=== PATIENT | female | born 1990 | race Asian ===

== ENCOUNTER 2016-07-08 01:43 | Inpatient (IN) | payer OTHER ==
[2016-07-08] MEDS ORDERED: RINGERS SOLUTION,LACTATED 1,000 ML IV ONE (02:20)
[2016-07-08] MEDS ORDERED: RINGERS SOLUTION,LACTATED 1,000 ML IV PRN (02:20)
[2016-07-08 02:46] LABS: ABSOLUTE BASOPHILS # (AUTO) 0.1 10^3/uL (0.0-0.2); ABSOLUTE LYMPHOCYTES (AUTO) 1.9 10^3/uL (0.5-4.7); ABSOLUTE MONOCYTES (AUTO) 0.7 10^3/uL (0.1-1.4); ABSOLUTE NEUT (AUTO) 7.3 10^3/uL (1.7-8.2); BASOPHILS % (AUTO) 0.6 % (0-2); EOSINOPHILS % (AUTO) 0.3 % (0-6); HEMATOCRIT 33.3 % (36.0-47.0); HEMOGLOBIN 10.7 g/dL (12.0-15.5); HGB HCT DIFFERENCE -1.2; LYMPHOCYTES % (AUTO) 19.3 % (13-45); MEAN CORPUSCULAR HEMOGLOBIN 24.9 pg (27.0-33.4); MEAN CORPUSCULAR VOLUME 78 fl (80-97); MONOCYTES % (AUTO) 7.1 % (3-13); RED BLOOD COUNT 4.29 10^6/uL (3.72-5.28); RED CELL DISTRIBUTION WIDTH 13.4 % (11.5-14.0); SEGMENTED NEUTROPHILS % (AUTO) 72.7 % (42-78); WHITE BLOOD COUNT 10.1 10^3/uL (4.0-10.5)
[2016-07-08] MEDS ORDERED: MISOPROSTOL 0.2 MG TABLET ONE ×2 (02:54→02:56)
[2016-07-08] MEDS ORDERED: LIDOCAINE 1% INJ-PF (10 MG/ML) 30 ML SDV ONE ×2 (02:54→02:56)
[2016-07-08] MEDS ORDERED: OXYTOCIN/NORMAL SALINE 0 UNIT/0 ML RTUINJ ONE (02:54)
[2016-07-08] MEDS ORDERED: OXYTOCIN/NORMAL SALINE 20 UNIT/1,000 ML RTUINJ ONE ×2 (02:56→03:54)
[2016-07-08] MEDS ORDERED: FENTANYL CITRATE INJ/PF 100 MCG/2 ML AMPUL ONE (02:58)
[2016-07-08] MEDS ORDERED: IBUPROFEN 800 MG TABLET ONE (03:28)
[2016-07-08] MEDS ORDERED: BENZOCAINE/MENTHOL AEROSOL SPRAY 56 ML TOP PRN (03:29)
[2016-07-08] MEDS ORDERED: DIBUCAINE 1% OINTMENT 28 GM TP PRN (03:29)
[2016-07-08] MEDS ORDERED: ZOLPIDEM TARTRATE 5 MG TABLET PO PRN (03:29)
[2016-07-08] MEDS ORDERED: MEASLES,MUMPS&RUBELLA VACC/PF 0.5 ML VIAL SUBCUT PRN (03:29)
[2016-07-08] MEDS ORDERED: OXYTOCIN/NORMAL SALINE 1,000 ML IV PRN (03:29)
[2016-07-08] MEDS ORDERED: ACETAMINOPHEN WITH CODEINE #3 TABLET PO PRN ×2 (03:29)
[2016-07-08] MEDS ORDERED: DIPH/PERTUSS(ACELL)/TETANUS VAC/PF 0.5 ML SYR (>=10YO) IM PRN (03:29)
--- NOTE | 2016-07-08 05:22 | Admission Physical ---
Datetime Report Generated by CPN: 07/08/2016 05:22 CURRENT ADMISSION Hx Assessment: The History has been Reviewed and is Current Chief Complaint: Uterine Contractions Admit Plan: Admit to Unit; Initiate Labor Protocol ALLERGIES Medication Allergies: No Medication Allergies: none Latex: No Latex Allergies Food Allergies: none Environmental Allergies: none OBSTETRICAL HISTORY EDC: 07/08/2016 00:00 : 4 Para: 3 Term: 3 : 0 SAB: 0 IAB: 0 Ectopic: 0 Livin Cesareans: 0 VBACs: 0 Multiple Births: 0 Gestational Diabetes: No Rh Sensitization: No Incompetent Cervix: No LIDIA: No Infertility: No ART Treatment: No Uterine Anomaly: No IUGR: No Hx Previous C/S: No Macrosomia: No Hx Loss/Stillborn: No PIH: No Hx : No Placenta Previa/Abruption: No Depression/PP Depression: No PTL/PROM: No Post Hemorrhage: No Current Procedures: Ultrasound; NST Obstetrical History Comments: G1-12/03/2010 @ 40wks female 6lbs 5oz G2-12/24/2012 @ 39wks female 7lbs 0oz G3-12/02/2014 @ 41wks male 7lbs 8oz G4-Current SEE RECORDS Alcohol: No Marijuana : No Cocaine: No Other Illicit Drugs: No Cigarettes: Never Smoker. [id number] MEDICAL HISTORY Diabetes: No Blood Transfusion: No Pulmonary Disease (Asthma, TB): No Breast Disease: No Hypertension: No Yard Labor Supervisor Surgery: No Heart Disease: No Hosp/Surgery: Yes Autoimmune Disorder: No Anesthetic Complications: No Kidney Disease: No Abnormal Pap Smear: No Neuro/Epilepsy: No Psychiatric Disorders: No Other Medical Diseases: No Hepatitis/Liver Disease: No Significant Family History: No Varicosities/Phlebitis: No Trauma/Violence : No Thyroid Dysfunction: No Medical History Comments: childbirth INFECTIOUS HISTORY Gonorrhea: No Genital Herpes: No Chlamydia: No Tuberculosis: No Syphilis: No Hepatitis: No HIV/AIDS Exposure: No Rash or Viral Illness: No HPV: No PHYSICAL EXAM General: Normal HEENT: Normal Neurologic: Normal Thyroid: Normal Heart: Normal Lungs: Normal Breast: Normal Back: Normal Abdomen: Normal Genitourinary Exam: Normal Extremities: Normal DTRs: Normal Pelvic Type: Adequate Physical Exam Comments: arom when pt complete yielded light mec FETUS A EGA: 40.0 Monitoring: External US FHR Category: Category I Admit Comment: Pt progressed rapidly to delivery. See delivery note. PLANS FOR LABOR AND DELIVERY Labor and Delivery: None Pain Management: Epidural Feeding Preference: Breast Benefit of Breast Feed Discussed: Yes Circumcision: N/A INFORMED CONSENT Signature: with User ID: [email or web address]
--- NOTE | 2016-07-08 05:39 | Delivery Summary ---
Del Sum A-C Datetime Report Generated by CPN: 07/08/2016 05:39 ADMISSION DATA Chief Complaint: Uterine Contractions Admission Impression: Term, Intrauterine Admit Provider Comments: Pt progressed rapidly to delivery. See delivery note. DELIVERY PERSONNEL Delivery Doctor:: Rama Tran MD Labor and Delivery Nurse:: Etelvina Hopson RNpublic events facilities rental manager Nurse:: Tita Levy RN Insurance Advisor/MANDREL MAKER: Lachelle Cadet ST MATERNAL INFORMATION Delivery Anesthesia: None Medications After Delivery: Pitocin Drip 20 Units/1000ml NSS Estimated Blood Loss (ml): 100 Maternal Complications: Precipitous Labor (<3hrs) Provider Comments: Pt progressed to over intact perineum of female with apgars 9 and 9. Head delivered oa. Nuchal cord reduced and shoulders and body delivered easily. Cord clamped and cut. Placenta spont and intact. Mom and baby doing well. LABOR SUMMARY EDC: 07/08/2016 00:00 No. Babies in Womb: 1 Attempted: No Labor Anesthesia: None LABOR INFORMATION Reason for Induction: Not Applicable Onset of Labor: 07/08/2016 02:10 Complete Dilatation: 07/08/2016 02:57 Oxytocin: N/A Group B Beta Strep: Negative Antibiotics # of Doses: 0 Steroids Given: None Reason Steroids Not Administered: Not Applicable MEMBRANES Membranes Rupture Method: Artificial Rupture of Membranes: 07/08/2016 03:11 Length of Rupture (hr): 0.03 Amniotic Fluid Color: Light Meconium Amniotic Fluid Amount: Moderate Amniotic Fluid Odor: Normal STAGES OF LABOR Stage 1 hr: 0 Stage 1 min: 47 Stage 2 hr: 0 Stage 2 min: 16 Stage 3 hr: 0 Stage 3 min: 6 Total Time in Labor hr: 1 Total Time in Labor min: 9 VAGINAL DELIVERY Episiotomy: None Laceration Extension: N/A Laceration Type: None Laceration Repair: Not Applicable Sponge Count Correct: N/A Sharps Count Correct: N/A CSECTION DELIVERY Primary Indication: N/A Secondary Indication: N/A CSection Incidence: N/A Labor: N/A Elective: N/A CSection Incision: N/A BABY A INFORMATION Delivery Date/Time: 07/08/2016 03:13 Method of Delivery: Vaginal Born in Route : No : N/A Forceps: N/A Vacuum Extraction: N/A Shoulder Dystocia : No PRESENTATION/POSITION BABY A Presentation: Cephalic Cephalic Presentation: Vertex Vertex Position: Right Occipital Anterior Breech Presentation: N/A PLACENTA INFORMATION BABY A Placenta Delivery Time : 07/08/2016 03:19 Placenta Method of Delivery: Spontaneous Placenta Status: Delivered SCORES BABY A Heart Rate 1 min: >100 bpm Resp Effort 1 min: Good Cry Reflex Irritability 1 min: Cough or Sneeze or Pulls Away Muscle Tone 1 min: Active Motion Color 1 min: Body [place], Extremities Blue Resuscitation Effort 1 min: Tactile Stimulation SCORE 1 MIN: 9 Heart Rate 5 min: >100 bpm Resp Effort 5 min: Good Cry Reflex Irritability 5 min: Cough or Sneeze or Pulls Away Muscle Tone 5 min: Active Motion Color 5 min: Body [place], Extremities Blue Resuscitation Effort 5 min: Tactile Stimulation SCORE 5 MIN: 9 INFORMATION BABY A Gestational Age at Delivery: 40.0 Gestational Status: Full Term- 39- 40.6 Weeks Infant Outcome : Liveborn Infant Condition : Stable Sex: Female IDENTIFICATION BABY A Infant Verification Date/Time: 07/08/2016 03:18 ID Band Number: [id number] Mother's Name Verified: Yes Infant RN Verifying : S. Lavelletibvirgiejuaquinir, RN Additional Verifying Personnel: OOmar Adriánelina, RN WEIGHT/LENGTH BABY A Birthweight (gm): 3395 Weight (lb): 7 Weight (oz): 8 Infant Length (in): 20.00 Length (cm): 50.80 CORD INFORMATION BABY A No. Cord Vessels: 3 Nuchal Cord : N/A Cord Blood Taken: Yes-For Storage (Mom's Blood type +) Infant Suction: Mouth; Nose ASSESSMENT BABY A Infant Complications: Meconium Physical Findings at Delivery: Within Normal Limits Respirations: Appears Normal Skin to Skin: Yes Skin to Skin Time (min): 90 Cat Operator/ALS Called : No Care By: Racheal Pereyra RN Transferred To: Remains with Mother BABY B INFORMATION : N/A SIGNATURES Signature: with User ID: [email or web address]
--- NOTE | 2016-07-08 07:01 | L&D Flow Sheet ---
LD Flowsheet Datetime Report Generated by CPN: 07/08/2016 07:00 Datetime: 07/08/2016 05:15 Respirations: 18 (Etelvina Hopson, RN) Temperature (F): 98.0 (Etelvina Hopson, RN) Temperature (C): 36.7 (QS system process) Temperature Route: Oral (Etelvina Hopson, RN) Pain Pain Scale: 1 (Etelvina Hopson, RN) Pain Presence: Intermittent (Etelvina Hopson, RN) Pain Type: Cramping (Etelvina Hopson, RN) Pain Location: Abdomen (Etelvina Hopson, RN) Datetime: 07/08/2016 05:08 NBP Sys/Jane/Mean (mmHg): 112 (QS system process) : 59 (QS system process) : 81 (QS system process) Pulse: 74 (QS system process) Datetime: 07/08/2016 05:00 Vital Signs Stage of : Recovery (Etelvina Hopson, RN) Respirations: 18 (Etelvina Hopson, RN) Pain Pain Scale: 1 (Etelvina Hopson, RN) Pain Presence: Intermittent (Etelvina Hopson, RN) Pain Type: Cramping (Etelvina Hopson, RN) Pain Location: Abdomen (Etelvina Hopson, RN) Datetime: 07/08/2016 04:45 Vital Signs Stage of : Recovery (Etelvina Hopson, RN) Datetime: 07/08/2016 04:38 NBP Sys/Jane/Mean (mmHg): 121 (QS system process) : 65 (QS system process) : 86 (QS system process) Pulse: 83 (QS system process) Datetime: 07/08/2016 04:30 Vital Signs Stage of : Recovery (Etelvina Hopson, RN) Datetime: 07/08/2016 04:15 Vital Signs Stage of : Recovery (Etelvina Hopson, RN) Respirations: 18 (Etelvina Hopson, RN) Temperature (F): 98.0 (Etelvina Hopson, RN) Temperature (C): 36.7 (QS system process) Temperature Route: Oral (Etelvina Hopson, RN) Pain Pain Scale: 1 (Etelvina Hopson, RN) Pain Presence: Intermittent (Etelvina Hopson, RN) Pain Type: Cramping (Etelvina Hopson, RN) Pain Location: Abdomen (Etelvina Hopson, RN) Pain Goal: 1 (Etelvina Hopson, RN) Pain Relief Measures: Comfort Measures (Etelvina Hopson, RN) Datetime: 07/08/2016 04:08 NBP Sys/Jane/Mean (mmHg): 124 (QS system process) : 65 (QS system process) : 88 (QS system process) Pulse: 81 (QS system process) Datetime: 07/08/2016 04:00 Vital Signs Stage of : Recovery (Etelvina Hopson, RN) Datetime: 07/08/2016 03:56 Vital Signs Stage of : Recovery (Etelvina Hopson, RN) Datetime: 07/08/2016 03:43 Vital Signs Stage of : Recovery (Etelvina Hopson, RN) Respirations: 18 (Etelvina Hopson, RN) Pain Pain Scale: 2 (Etelvina Hopson, RN) Pain Presence: Intermittent (Etelvina Hopson, RN) Pain Type: Cramping (Etelvina Hopson, RN) Pain Location: Abdomen (Etelvina Hopson, RN) Pain Goal: 1 (Etelvina Hopson, RN) Pain Relief Measures: Comfort Measures (Etelvina Hopson, RN) Datetime: 07/08/2016 03:41 Vital Signs Stage of : Recovery (Etelvina Hopson, RN) Pain Pain Scale: 2 (Etelvina Hopson, RN) Pain Presence: Intermittent (Etelvina Hopson, RN) Pain Type: Cramping (Etelvina Hopson, RN) Pain Location: Abdomen (Etelvina Hopson, RN) Pain Goal: 1 (Etelvina Hopson, RN) Pain Relief Measures: Pain Medication Given (Etelvina Hopson, RN) Datetime: 07/08/2016 03:37 NBP Sys/Jane/Mean (mmHg): 124 (QS system process) : 74 (QS system process) : 94 (QS system process) Pulse: 86 (QS system process) Datetime: 07/08/2016 03:20 Vital Signs Stage of : Recovery (Etelvina Hopson, RN) Datetime: 07/08/2016 03:19 Stage 2 Comments: placenta delivered and inspected by Dr Neilsen. (Etelvina Hopson, RN) Datetime: 07/08/2016 03:13 Vital Signs Stage of : Labor (Etelvina Hopson, RN) Uterine Activity Monitor Mode: External; Palpation (Etelvina Hopson, RN) Frequency (min): 2-3 (Etelvina Hopson, RN) Quality: Strong (Etelvina Hopson, RN) Duration (sec): 60-90 (Etelvina Hopson, RN) Pattern: Normal: <= 5 Contractions in 10 Minutes (Etelvina Hopson, RN) Resting Tone (Palpate): Relaxed (Etelvina Hopson, RN) Assessment A Monitor Mode: External US (Etelvina Hopson, RN) FHR Baseline Rate : 125 (Etelvina Hopson, RN) Variability: Moderate 6-25 bpm (Etelvina Hopson, RN) Accelerations: 15X15 (Etelvina Hopson, RN) Decelerations: Early (Etelvina Hopson, RN) Medications Pitocin (milliunit): Pitocin 20 Units in 1000ml NS (Etelvina Hopson, RN) Medication Comments: pitocin bolus started (Etelvina Hopson, RN) Stage 2 Comments: viable female delivered by Dr Tran (Etelvina Hopson, RN) Communication Communication: RN at Bedside; RN Reviewed Strip (Etelvina Hopson, RN) Datetime: 07/08/2016 03:12 Stage 2 Pushing Position: Pushing with Contractions (Etelvina Hopson, RN) Pushing Progress: Descent with Pushing; with Pushing (Etelvina Hopson, RN) Stage 2 Comments: RN and doctor at bedside continouosly monitoring FHR status while pushing. (Etelvina Hopson, RN) Datetime: 07/08/2016 03:11 Membrane Status: Meconium (Karis Gonzalez RN) Membranes Rupture Method: Artificial (Karis Gonzalez RN) Amniotic Fluid Color: Light Meconium (Karis Lattibeaudeir, RN) Amniotic Fluid Amount: Moderate (Karis Lattibeaudeir, RN) Amniotic Fluid Odor: Normal (Karis Lattibeaudeir, RN) Datetime: 07/08/2016 03:00 Vital Signs Stage of : Labor (Etelvina Hopson, RN) Respirations: 22 (Etelvina Hopson, RN) Uterine Activity Monitor Mode: External (Etelvina Hopson, RN) Frequency (min): 3-4 (Etelvina Hopson, RN) Quality: Strong (Etelvina Hopson, RN) Duration (sec): 90-130 (Etelvina Hopson, RN) Pattern: Normal: <= 5 Contractions in 10 Minutes (Etelvina Hopson, RN) Resting Tone (Palpate): Relaxed (Etelvina Hopson, RN) Assessment A Monitor Mode: External US (Etelvina Hopson, RN) Monitor Interventions for FHR: Ultrasound Adjusted (Etlevina Hopson, RN) FHR Baseline Rate : 130 (Etelvina Hopson, RN) Variability: Moderate 6-25 bpm (Etelvina Hopson, RN) Accelerations: 15X15 (Etelvina Hopson, RN) Decelerations: Variable (Etelvina Hopson, RN) Pain Pain Scale: 4 (Etelvina Hopson, RN) Pain Presence: Intermittent (Etelvina Hopson, RN) Pain Type: Contraction (Etelvina Hopson, RN) Pain Location: Abdomen (Etelvina Hopson, RN) Pain Goal: 1 (Etelvina Hopson, RN) Pain Relief Measures: Comfort Measures (Etelvina Hopson, RN) Pain Coping: Breathing Through Contractions (Etelvina Hopson, RN) Comfort Measures: Breathing/Relaxation; Family Support (Etelvina Hopson, RN) Communication Communication: RN at Bedside; RN Reviewed Strip (Etelvina Hopson, RN) LaborFlag: Labor (QS system process) Datetime: 07/08/2016 02:57 Vaginal Exam Dilatation (cm): 10.0 (Etelvina Hopson, RN) Effacement (%): 100 (Etelvina Hopson, RN) Station: 2 (Etelvina Hopson, RN) Exam by: Dr Jaincarmelina (Etelvina Hopson, RN) Vaginal Bleeding: None (Etelvina Hopson, RN) Cervix, Consistency: Soft (Etelvina Hopson, RN) Cervix, Position: Midposition (Etelvina Hopson, RN) Datetime: 07/08/2016 02:56 Communication Communication: Provider Orders Received (Etelvina Hopson, RN) Communication Comments: Verbal orders to push 100mcg of fentanyl for pain (Etelvina Hopson, RN) Datetime: 07/08/2016 02:53 Vaginal Exam Dilatation (cm): 8.5 (Etelvina Hopson, RN) Effacement (%): 100 (Etelvina Hopson, RN) Station: 1 (Etelvina Hopson, RN) Exam by: B Hopson, RN (Etelvina Hopson, RN) Vaginal Bleeding: None (Etelvina Hopson, RN) Cervix, Consistency: Soft (Etelvina Hopson, RN) Cervix, Position: Midposition (Etelvina Hopson, RN) Patient Care IV/Blood Work: New IV Bag Hung (Etelvina Hopson, RN) Communication Communication: Provider at Bedside (Etelvina Hopson, RN) Communication Comments: Dr Neilsen at bedside for assessment (Etelvina Hopson, RN) Datetime: 07/08/2016 02:48 Comments: maternal HR tracing, RN at bedside (Etelvina Hopson, RN) Datetime: 07/08/2016 02:44 Comments: tracing maternal HR. RN at bedside attempting to adjusting FHR monitor. Dr Neilsen at bedside reviewing strip (Etelvina Hopson, RN) Communication Communication: Provider at Bedside (Etelvina Ohpson, RN) Communication Comments: Dr Neilsen at bedside (Etelvina Hopson, RN) Datetime: 07/08/2016 02:40 Procedures: Consents Signed (Etelvina Hopson, RN) Patient Care Comments: using Martti (Etelvina Hopson, RN) Datetime: 07/08/2016 02:30 Vital Signs Stage of : Labor (Etelvina Hopson, RN) Uterine Activity Monitor Mode: External; Palpation (Etelvina Hopson, RN) Frequency (min): 3-3.5 (Etelvina Hopson, RN) Quality: Strong (Etelvina Hopson, RN) Duration (sec): 90-120 (Etelvina Hopson, RN) Pattern: Normal: <= 5 Contractions in 10 Minutes (Etelvina Hopson, RN) Resting Tone (Palpate): Relaxed (Etelvina Hopson, RN) Assessment A Monitor Mode: External US (Etelvina Hopson, RN) FHR Baseline Rate : 135 (Etelvina Hopson, RN) Variability: Moderate 6-25 bpm (Etelvina Hopson, RN) Accelerations: 15X15 (Etelvina Hopson, RN) Decelerations: Early (Etelvina Hopson, RN) Communication Communication: RN at Bedside; RN Reviewed Strip (Etelvina Hopson, RN) Datetime: 07/08/2016:29 Frequency (min): 4-5 minutes per patient (Etelvina Hopson, RN) Pain Pain Scale: 3 (Etelvina Hopson, RN) Pain Presence: Intermittent (Etelvina Hopson, RN) Pain Type: Contraction (Etelvina Hopson, RN) Pain Location: Abdomen (Etelvina Hopson, RN) Pain Goal: 1 (Etelvina Hopson, RN) Pain Coping: Breathing Through Contractions (Etelvina Hopson, RN) Vaginal Bleeding: None (Etelvina Hopson, RN) Maternal Assessment Level of Consciousness: Fully Conscious (Etelvina Hopson, RN) DTR's/Clonus: DTRs 2+; No Clonus (Etelvina Hopson, RN) Headache: Denies (Etelvina Hopson, RN) Breath Sounds, Left: Clear and Equal (Etelvina Hopson, RN) Breath Sounds, Right: Clear and Equal (Etelvina Hopson, RN) Nausea/Vomiting: Denies (Etelvina Hopson, RN) RUQ Epigastric Pain: Denies (Etelvina Hopson, RN) LaborFlag: Antepartum (QS system process) Datetime: 07/08/2016 02:19 Patient Care IV/Blood Work: IV Started; IV Bolus Started (Etelvina Hopson, RN) Patient Care Comments: 18 gauge placed in L wrist on first attempt (Etelvina Hopson, RN) Datetime: 07/08/2016 02:13 NBP Sys/Jane/Mean (mmHg): 133 (QS system process) : 78 (QS system process) : 98 (QS system process) Pulse: 98 (QS system process) LaborFlag: Antepartum (QS system process) Datetime: 07/08/2016 02:10 Vital Signs Stage of : Antepartum (Karis Lattibeaudeir, RN) Vaginal Exam Dilatation (cm): 5.5 (Etelvina Hopson, RN) Effacement (%): 90 (Etelvina Hopson, RN) Station: -2 (Etelvina Hopson, RN) Exam by: B Hopson, RN (Etelvina Hopson, RN) Vaginal Bleeding: None (Etelvina Hopson, RN) Cervix, Consistency: Soft (Etelvina Hopson, RN) Cervix, Position: Midposition (Etelvina Hposon, RN) Datetime: 07/08/2016 02:04 Vital Signs Stage of : Labor (Etelvina Hopson, RN) Datetime: 07/08/2016 01:48 Membranes Ruptured Date/Time: 07/08/2016 03:11 (Karis Gonzalez RN) Membranes Rupture Method: Artificial (Karis Gonzalez RN) Amniotic Fluid Color: Light Meconium (Karis Gonzalez RN)
[2016-07-08] MEDS: IBUPROFEN 800 MG TABLET PO SCH ×3 (07:29→21:52)
[2016-07-08] MEDS: FERROUS SULFATE 325 MG TABLET PO SCH ×2 (09:27→18:53)
[2016-07-08] MEDS: PRENATAL VITAMIN W-O CA NO5/FE FUMARATE/FA CAPSULE PO SCH (09:27)
[2016-07-08] MEDS: SENNOSIDES/DOCUSATE 8.6-50 MG 1 EACH TABLET PO SCH (09:27)
[2016-07-08] MEDS: DOCUSATE SODIUM 100 MG CAPSULE PO SCH ×2 (09:28→18:53)
--- NOTE | 2016-07-08 16:42 | PDOC PROGRESS REPORT ---
Subjective-OB Subjective: Post Delivery Day: 26 year old. Denies any needs at this time spouse present to translate pt sitting up holding baby offers no complaints well pain well managed Physical Exam (OB) Vital Signs: Temp Pulse Resp BP Pulse Ox 97.6 F 68 16 115/61 97 07/08/16 09:01 07/08/16 09:01 07/08/16 09:01 07/08/16 09:01 07/08/16 09:01 Intake & Output 07/07/16 07/08/16 07/09/16 06:59 06:59 06:59 Weight 77.05 kg - PIH/Pre-Eclampsia Clonus: Negative - Lochia Lochia Amount: Scant < 10 ml Lochia Color: Rubra/Red - Abdomen Description: Soft, Flat Hernia Present: No Fundal Description: Firm, Midline Fundal Height: u/u - u/2 Objective-Diagnostic Laboratory: 07/08/16 02:31 07/08/16 07/08/16 02:31 02:31 WBC 10.1 RBC 4.29 Hgb 10.7 L Hct 33.3 L MCV 78 L MCH 24.9 L MCHC 32.0 RDW 13.4 Plt Count 301 Seg Neutrophils % 72.7 Lymphocytes % 19.3 Monocytes % 7.1 Eosinophils % 0.3 Basophils % 0.6 Absolute Neutrophils 7.3 Absolute Lymphocytes 1.9 Absolute Monocytes 0.7 Absolute Eosinophils 0.0 Absolute Basophils 0.1 Blood Type A POSITIVE Antibody Screen NEGATIVE
--- NOTE | 2016-07-08 18:01 | L&D Current Admission ---
Current Admit Datetime Report Generated by CPN: 07/08/2016 18:00 ADMISSION INFORMATION Current Admit Date/Time: 07/08/2016 02:30 (07/08/2016 02:29:Etelvina Hopson RN) Reason for Admission: Onset of Labor (07/08/2016 02:29:Etelvina Hopson RN) Chief Complaint: Contractions (07/08/2016 02:29:Etelvina Hopson RN) EGA per Dates: 40.0 (07/08/2016 02:29:QS system process) Method of Arrival: Wheelchair (07/08/2016 02:29:Etelvina Hopson RN) Admitted From: Home (07/08/2016 02:29:Etelvina Hopson RN) Reason for Induction: Not Applicable (07/08/2016 02:29:Etelvina Hopson RN) Records Available: Yes (07/08/2016 02:29:Etelvina Hopson RN) General Admission Information: Reviewed (07/08/2016 02:29:Etelvina Hopson RN) BELONGINGS/ADVANCED DIRECTIVES Other Belongings: see belongings consent form (07/08/2016 02:29:Etelvina Hopson RN) Advance Direct for Healthcare: No, and Wants No Information (07/08/2016 02:29:Etelvina Hopson RN) Durable Power of Operations Advisor: No (07/08/2016 02:29:Etelvina Hopson RN) Living Will: No (07/08/2016 02:29:Etelvina Hopson RN) Organ Donor: No (07/08/2016 02:29:Etelvina Hopson RN) Pt Rights Information Given: Yes (07/08/2016 02:29:Etelvina Hopson RN) Pt Understands Pt Rights: Yes (07/08/2016 02:29:Etelvina Hopson RN) LEARNING ASSESSMENT Knowledge Level: Understands L_D Process; Understands Care Activities; Understands Diagnosis (07/08/2016 02:29:Etelvina Hopson RN) Barriers to Learning: None (07/08/2016 02:29:Etelvina Hopson RN) Learning Readiness: Motivated (07/08/2016 02:29:Etelvina Hopson RN) Learns Best By: 1 to 1 Instruction (07/08/2016 02:29:Etelvina Hopson RN) Learning Needs: Labor and Delivery Process; Pain Management; Symptoms to Report; Treatment Plan; Medication; Diagnosis; Nutrition; Equipment; Care; Community Resources (07/08/2016 02:29:Etelvina Hopson RN) DOMESTIC VIOLANCE SCREENING Dom Viol Threatened/Hurt: No (07/08/2016 02:29:Etelvina Hopson RN) Hx of Abuse/Neglect past 2yrs: No (07/08/2016 02:29:Etelvina Hopson RN) Feel Unsafe Going Home: No (07/08/2016 02:29:Etelvina Hopson RN) Addt'l Observ Indicating Abuse: No (07/08/2016 02:29:Etelvina Hopson RN) Reason Unable to Complete Screen: N/A, Screen Completed (07/08/2016 02:29:Etelvina Hopson RN) Considered Personal Harm/Suicide: No (07/08/2016 02:29:Etelvina Hopson RN) NUTRITIONAL/FUNCTIONAL SCREENING Problem with Appetite >5 Days: No (07/08/2016 02:29:Etelvina Hopson RN) Chew/Swallow Difficulties: No (07/08/2016 02:29:Etelvina Hopson RN) Inappropriate Wt Gain/Loss: No (07/08/2016 02:29:Etelvina Hopson RN) Presence Skin Breakdown/Ulcer: No (07/08/2016 02:29:Etelvina Hopson RN) Special Diet: No (07/08/2016 02:29:Etelvina Hopson RN) Pt Requests Resizer Operator Visit: No (07/08/2016 02:29:Etelvina Hopson RN) Hx of Any of the Following?: N/A (07/08/2016 02:29:Etelvina Hopson RN) New Diagnosis of: N/A (07/08/2016 02:29:Etelvina Hopson RN) Requires Assist w/Ambulation: No (07/08/2016 02:29:Etelvina Hopson RN) Uses Assist Device to Ambulate: No (07/08/2016 02:29:Etelvina Hopson RN) Pt Requires Help w/ADL's: No (07/08/2016 02:29:Etelvina Hospon RN)
--- NOTE | 2016-07-08 18:01 | L&D General Admission ---
General Admit Datetime Report Generated by CPN: 07/08/2016 18:00 INFORMATION Patient Age: 26 (06/13/2016 15:20:QS system process) EDC: 07/08/2016 00:00 (07/08/2016 01:48:Karis Gonzalez RN) : 4 (07/08/2016 01:48:Etelvina Hopson RN) Para: 3 (07/08/2016 01:48:Etelvina Hopson RN) Term: 3 (07/08/2016 01:48:Etelvina Hopson RN) : 0 (07/08/2016 01:48:Etelvina Hopson RN) Spontaneous Abortions: 0 (07/08/2016 01:48:Etelvina Hopson RN) Induced Abortions: 0 (07/08/2016 01:48:Etelvina Hopson RN) Livin (07/08/2016 01:48:Etelvina Hopson RN) Cesareans: 0 (07/08/2016 01:48:Etelvina Hopson RN) VBACs: 0 (07/08/2016 01:48:Etelvina Hopson RN) Ectopic: 0 (07/08/2016 01:48:Etelvina Hopson RN) Multiple Births: 0 (07/08/2016 01:48:Etelvina Hopson RN) Baby, Number in Womb: 1 (07/08/2016 01:48:Etelvina Hopson RN) CARE [facility] (07/08/2016 01:48:Etelvina Hopson RN) Month of 1st Visit: January (07/08/2016 01:48:Karis Gonzalez RN) Prepregnancy Weight (lb): 150 (07/08/2016 01:48:Karis Gonzalez RN) Prepregnancy Weight (kg): 68.2 (07/08/2016 01:48:QS system process) Height (in): 64 (07/08/2016 11:39:QS system process) ALLERGIES Medication Allergy: No (07/08/2016 01:48:Etelvina Hopson RN) Medication Allergies: none (07/08/2016 01:48:Etelvina Hopsno RN) Latex Allergy: No Latex Allergies (07/08/2016 01:48:Etelvina Hopson RN) Food Allergies: none (07/08/2016 01:48:Etelvina Hopson RN) Environmental Allergies: none (07/08/2016 01:48:Etelvina Hopson RN) COMMUNICATION Primary Language: Mosotho (07/08/2016 01:48:Etelvina Hopson RN) Medical Tx Preferred Language: Mosotho (07/08/2016 01:48:Etelvina Hopson RN) Communication Barrier(s): Language barrier (07/08/2016 01:48:Etelvina Hopson RN) DEMOGRAPHICS Address: [address] [place] [address] [address] (06/13/2016 15:20:QS system process) Zipcode: [address] (06/13/2016 15:20:QS system process) Home (06/13/2016 15:20:QS system process) SSN: [id number] (06/13/2016 15:20:QS system process) Next of Kin Name: NOHELIA RYAN (06/13/2016 15:20:QS system process) Next of Kin (06/13/2016 15:20:QS system process) Next of Kin Relationship: SPO (06/13/2016 15:20:QS system process) Date of : 1990 (06/13/2016 15:20:QS system process) Marital Status: (06/13/2016 15:20:QS system process) Sex: Female (06/13/2016 15:20:QS system process) Race: (06/13/2016 15:20:QS system process) Ethnicity: Non- or (06/13/2016 15:20:QS system process) Orthodoxy: Other (06/13/2016 15:20:QS system process) DRUG AND ALCOHOL USE Alcohol: No (07/08/2016 01:48:Etelvina Hopson RN) Cigarettes: Never Smoker. [id number] (07/08/2016 01:48:Etelvina Hopson RN) Marijuana: No (07/08/2016 01:48:Etelvina Hopson RN) Cocaine: No (07/08/2016 01:48:Etelvina Hopson RN) Other Illicit Drugs: No (07/08/2016 01:48:Etelvina Hopson RN) VACCINE HISTORY Influenza Vaccine: Yes (07/08/2016 01:48:Karis Gonzalez RN) Influenza Date: 03/02/2016 (07/08/2016 01:48:Karis Gonzalez RN) Pneumococcal Vaccine: No (07/08/2016 01:48:Etelvina Hopson RN) Tetanus Vaccine: Uncertain (07/08/2016 01:48:Etelvina Hopson RN) Tdap Vaccine: Uncertain (07/08/2016 01:48:Etelvina Hopson RN) Hepatitis B Vaccine: Uncertain (07/08/2016 01:48:Etelvina Hopson RN) Feeding Preference: Breast (07/08/2016 01:48:Etelvina Hopson RN) Benefit of Breast Feed Discussed: Yes (07/08/2016 01:48:Etelvina Hopson RN) Circumcision: N/A (07/08/2016 01:48:Etelvina Hopson RN) Classes Attended: No (07/08/2016 01:48:Etelvina Hopson RN) Tubal Ligation: No (07/08/2016 01:48:Etelvina Hopson RN) Tubal Authorization Signed: N/A (07/08/2016 01:48:Etelvina Hopson RN) Consent: N/A (07/08/2016 01:48:Etelvina Hopson RN) Consent Signed: N/A (07/08/2016 01:48:Etelvina Hopson RN) Pain Management Plans: Epidural (07/08/2016 01:48:Etelvina Hopson RN) Plans for Labor and Delivery: None (07/08/2016 01:48:Etelvina Hopson RN) Support Person: Cecille (07/08/2016 01:48:Etelvina Hopson RN) Support Person Relationship: (07/08/2016 01:48:Etelvina Hopson RN) Cultural/Spritual Practice: No (07/08/2016 01:48:Etelvina Hopson RN) Spir/Cult Dietary Needs: No (07/08/2016 01:48:Etelvina Hopson RN) LIVING SITUATION/DISCHARGE PLAN Living Arrangements: Apartment (07/08/2016 01:48:Etelvina Hopson RN) Adequate Access to:: Electric; Heat; Refrigeration; Plumbing/Running water; Phone; Transportation (07/08/2016 01:48:Etelvina Hopson RN) WIC Program: Suzie (07/08/2016 01:48:Etelvina Hopson RN) Discharge Program Aide Group Work Person: cecille (07/08/2016 01:48:Etelvina Hopson RN) Person to Help after Discharge: cecille (07/08/2016 01:48:Etelvina Hopson RN) Currently Using Commun Resources: Suzie (07/08/2016 01:48:Etelvina Hopson RN) Outside Agency/Stamp Press Operator: Suzie (07/08/2016 01:48:Etelvina Hopson RN) Car Seat for Discharge: Yes (07/08/2016 01:48:Etelvina Hopson RN) Adoption Requested: No (07/08/2016 01:48:Etelvina Hopson RN) Pt Contact w/infant Post : N/A (07/08/2016 01:48:Etelvina Hopson RN) LABS Blood Type: A Positive (07/08/2016 01:48:Karis Gonzalez RN) Antibody Screen: Negative (07/08/2016 01:48:Karis Gonzalez RN) Rho(G) this : Not Applicable (07/08/2016 01:48:Karis Gonzalez RN) Hemoglobin: 10.7 L (07/08/2016 02:31:QS system process) Hematocrit: 33.3 L (07/08/2016 02:31:QS system process) MCV: 78 L (07/08/2016 02:31:QS system process) Group Beta Strep: Negative (07/08/2016 01:48:Karis Gonzalez RN) Gonorrhea: Negative (07/08/2016 01:48:Karis Gonzalez RN) Chlamydia: Negative (07/08/2016 01:48:Karis Gonzalez RN) RPR/VDRL: Nonreactive (07/08/2016 01:48:Karis Gonzalez RN) HIV Results: Negative (07/08/2016 01:48:Karis Gonzalez RN) Hepatitis B: Negative (07/08/2016 01:48:Karis Gonzalez RN) Rubella: Immune (07/08/2016 01:48:Karis Gonzalez RN) OB/PREVIOUS HISTORY Previous Procedures: Ultrasound; NST (07/08/2016 01:48:Etelvina Hopson RN) Current Procedures: Ultrasound; NST (07/08/2016 01:48:Etelvina Hoposn RN) History of Previous : No (07/08/2016 01:48:Karis Gonzalez RN) History of Gestational Diabetes: No (07/08/2016 01:48:Karis Gonzalez RN) History of PIH: No (07/08/2016 01:48:Karis Gonzalez RN) History of Incompetent Cervix: No (07/08/2016 01:48:Karis Gonzalez RN) History of Placenta Previa/Abrup: No (07/08/2016 01:48:Karis Gonzalez RN) History of Macrosomia: No (07/08/2016 01:48:Karis Gonzalez RN) History of IUGR: No (07/08/2016 01:48:Karis Gonzalez RN) History of Hemorrhage: No (07/08/2016 01:48:Karis Gonzalez RN) History of Loss/Stillborn: No (07/08/2016 01:48:Karis Gonzalez RN) History of : No (07/08/2016 01:48:Karis Gonzalez RN) History of D (Rh) Sensitization: No (07/08/2016 01:48:Karis Gonzalez RN) History Recurrent Loss/Stillborn: No (07/08/2016 01:48:Karis Gonzalez RN) History Depression/PP Depression: No (07/08/2016 01:48:Etelvina Hopson RN) History of Uterine Anomaly/LIDIA: No (07/08/2016 01:48:Karis Gonzalez RN) History of Infertility: No (07/08/2016 01:48:Karis Gonzalez RN) History of ART Treatment: No (07/08/2016 01:48:Etelvina Hopson RN) History of LIDIA: No (07/08/2016 01:48:Karis Gonzalez RN) Comments Obstetrical History: G1-12/03/2010 @ 40wks female 6lbs 5oz G2-12/24/2012 @ 39wks female 7lbs 0oz G3-12/02/2014 @ 41wks male 7lbs 8oz G4-Current (07/08/2016 01:48:Karis Gonzalez RN) MEDICAL HISTORY Med Hx Diabetes: No (07/08/2016 01:48:Etelvina Hopson RN) Med Hx Hypertension: No (07/08/2016 01:48:Etelvina Hopson RN) Med Hx Heart Disease: No (07/08/2016 01:48:Etelvina Hopson RN) Med Hx Autoimmune Disorder: No (07/08/2016 01:48:Etelvina Hopson RN) Med Hx Kidney Disease/UTI: No (07/08/2016 01:48:Etelvina Hopson RN) Med Hx Neurologic/Epilepsy: No (07/08/2016 01:48:Etelvina Hopson RN) Med Hx Psychiatric Disorders: No (07/08/2016 01:48:Etelvina Hopson RN) Med Hx Hepatitis/Liver Disease: No (07/08/2016 01:48:Etelvina Hopson RN) Med Hx Varicosities/Phlebitis: No (07/08/2016 01:48:Etelvina Hopson RN) Med Hx Thyroid Dysfunction: No (07/08/2016 01:48:Etelvina Hopson RN) Med Hx Trauma/Violence: No (07/08/2016 01:48:Etelvina Hopson RN) Med Hx Blood Transfusion: No (07/08/2016 01:48:Etelvina Hopson RN) Med Hx Pulmonary (Asthma,TB): No (07/08/2016 01:48:Etelvina Hopson RN) Med Hx Breast: No (07/08/2016 01:48:Etelvina Hopson RN) Med Hx SVP BUSINESS DEVELOPMENT Surgery: No (07/08/2016 01:48:Etelvina Hopson RN) Med Hx Hospitalization/Surgery: Yes (07/08/2016 01:48:Etelvina Hopson RN) Med Hx Anesthetic Complications: No (07/08/2016 01:48:Etelvina Hopson RN) Med Hx Abnormal Pap Smear: No (07/08/2016 01:48:Etelvina Hopson RN) Other Medical Diseases: No (07/08/2016 01:48:Etelvina Hopson RN) Med Hx Significant Family Hx: No (07/08/2016 01:48:Etelvina Hopson RN) Details of Med/Surg Hx: childbirth (07/08/2016 01:48:Etelvina Hopson RN) INFECTIOUS HISTORY Inf Hx Gonorrhea: No (07/08/2016 01:48:Etelvina Hopson RN) Inf Hx Chlamydia: No (07/08/2016 01:48:Etelvina Hopson RN) Inf Hx Syphilis: No (07/08/2016 01:48:Etelvina Hopson RN) Inf Hx HIV/AIDS: No (07/08/2016 01:48:Etelvina Hopson RN) Inf Hx Human Papilloma Virus: No (07/08/2016 01:48:Etelvina Hopson RN) Inf Hx Pt/Partner Genital Herpes: No (07/08/2016 01:48:Etelvina Hopson RN) Inf Hx Tuberculosis/Exposure: No (07/08/2016 01:48:Etelvina Hopson RN) Inf Hx Hepatitis B,C: No (07/08/2016 01:48:Etelvina Hopson RN) Inf Hx Rash or Viral Illness: No (07/08/2016 01:48:Etelvina Hopson RN) GENETIC HISTORY Gen Hx Age >=35 at SARAH BETH: No (07/08/2016 01:48:Etelvina Hopson RN) Gen Hx Thalassemia: No (07/08/2016 01:48:Etelvina Hopson RN) Gen Hx Congenital Heart Defect: No (07/08/2016 01:48:Etelvina Hopson RN) Gen Hx Neural Tube Defect: No (07/08/2016 01:48:Etelvina Hopson RN) Gen Hx Down's Syndrome: No (07/08/2016 01:48:Etelvina Hopson RN) Gen Hx Raul-Sachs: No (07/08/2016 01:48:Etelvina Hopson RN) Gen Hx Amy: No (07/08/2016 01:48:Etelvina Hopson RN) Gen Hx Familial Dysautonomia: No (07/08/2016 01:48:Etelvina Hopson RN) Gen Hx Sickle Cell Disease/Trait: No (07/08/2016 01:48:Etelvina Hopson RN) Gen Hx Hemophilia/Blood Disorder: No (07/08/2016 01:48:Etelvina Hopson RN) Gen Hx Muscular Dystrophy: No (07/08/2016 01:48:Etelvina Hopson RN) Gen Hx Cystic Fibrosis: No (07/08/2016 01:48:Etelvina Hopson RN) Gen Hx Huntingtons Chorea: No (07/08/2016 01:48:Etelvina Hopson RN) Gen Hx Mental Retardation/Autism: No (07/08/2016 01:48:Etelvina Hopson RN) Gen Hx Tested for Fragile X: No (07/08/2016 01:48:Etelvina Hopson RN) Gen Hx Other Inher/Chromosomal: No (07/08/2016 01:48:Etelvina Hopson RN) Gen Hx Maternal Metabolic DO: No (07/08/2016 01:48:Etelvina Hopson RN) Gen Hx Pt Father or FOB Defect: No (07/08/2016 01:48:Etelvina Hopson RN) Gen Hx Other Genetic History: No (07/08/2016 01:48:Etelvina Hopson RN) Gen Hx Drugs/Meds since LMP: No (07/08/2016 01:48:Etelvina Hopson RN)
--- NOTE | 2016-07-08 18:16 | L&D Care Plan ---
LD CARE PLANS Datetime Report Generated by CPN: 07/08/2016 18:15 Datetime: 07/08/2016 02:20 Pain State: Risk For (Rama Rodriguez RN) Related To: Labor and Delivery Process; Surgical Procedure; Complication(s) of (Rama Rodriguez RN) Goal(s): Patients Pain will be Assessed and Managed; Patient will Verbalize Adequate Relief of Pain or the Ability to [place] with Current Pain (Rama Rodriguez RN) Interventions: Assess Pain Severity on Scale of 0 (None) to 5 (Severe); Assess Type, Location and Intensity of Pain Each Time Client Reports Discomfort and Notify Provider if Unusal Pain Develops; Encourage Proper Breathing and Relaxation Techniques; Offer Alternatives Such as Repositioning, Calm Environment, Massages, Diversional Activities, Ice Pack, Splinting, and Ambulation; Administer Analgesics as Ordered; Assist with Epidural Placement as Appropriate; Evaluate Therapeutic Effectiveness of Medication and Treatments (Rama Rodriguez RN) Outcome: Patient will Report Absence or Relief of Pain Consistent with Established Pain Goal (Rama Rodriguez RN) Status: Ongoing (Rama Rodriguez RN) Outcome: Patient will have a Decrease in Signs and Symptoms of Discomfort (Rama Rodriguez RN) Status: Ongoing (Rama Rodriguez RN) Outcome: Pain will be Controlled During Procedures (Rama Rodriguez RN) Status: Ongoing (Rama Rodriguez RN) Anxiety State: Risk For (Rama Rodriguez RN) Related To: Labor and Delivery Process; Surgical Procedure (Rama Rodriguez RN) Goal(s): Patient will have Decreased Anxiety and be able to Function at Acceptable Levels (Rama Rodriguez RN) Interventions: Assess Verbal and Nonverbal Behavioral Indicators of Anxiety; Assist Patient to Identify and Verbalize Symptoms of Anxiety; Identify and Demonstrate Techniques to Control Anxiety; Assist Patient with Coping Mechanisms to Manage Anxiety; Provide Theraputic Touch for the Patient; Explain to Patient, Using a Calm Reassuring Approach and Nonmedical Terms, All Activities, Procedures, and Concerns; Instruct Patient and Family about Post Discharge Care, Limitations, Symptoms to Report and Resources Available (Rama Rodriguez RN) Outcome: Patient will Identify, Verbalize and Demonstrate Techniques to Control Anxiety (Rama Rodriguez RN) Status: Ongoing (Rama Rodriguez RN) Outcome: Patient's Posture, Facial Expressions, Gestures and Activity Level will Reflect Decreased Anxiety (Rama Rodriguez RN) Status: Ongoing (Rama Rodriguez RN) Outcome: Patient will Verbalize a Sense of Control and/or Acceptance of the Situation (Rama Rodriguez RN) Status: Ongoing (Rama Rodriguez RN) Outcome: Patient will Identify and Utilize Support Person (Rama Rodriguez RN) Status: Ongoing (Rama Rodriguez RN) Knowledge Deficit State: Risk For (Rama Rodriguez RN) Related To: Labor and Delivery Process; Surgical Procedures (Rama Rodriguez RN) Goal(s): Patient will Accurately Verbalize Understanding of Plan of Care and Treatment; Patient and Family will Accurately Verbalize Understanding of the Disease Process (Rama Rodriguez RN) Interventions: Assess Motivation and Willingness of Patient/Family to Learn; Assess Preferred Learning Mode: One to One Instruction, Reading, Videos, Group Discussion or Demonstration; Assess Barriers to Learning: Pain, Emotional State, Language Barrier, Cognitive Impairment, Visual or Hearing Deficits; Assess Patient and Family Knowledge of Disease Process, Medications and Treatment; Discuss Therapy and/or Treatment Options, Describe Rationale Behind Management, Therapy and Treatment Recommendations; Instruct Patient and Family on Signs and Symptoms to Report; Instruct Patient and Family on Medication Effects and Side Effects; Provide Appropriate and Timely Education Using Multiple Techniques; Provide Patient and Family with Support Group Information and Resources; Give Clear and Thorough Explanations and Demonstrations (Rama Rodriguez RN) Outcome: Patient and Family will Verbalize Understanding of Condition, Treatment and Signs and Symptoms to Report (Rama Rodriguez RN) Status: Ongoing (Rama Rodriguez RN) Outcome: Patient will Identify Perceived Learning Needs and Express Motivation to Learn (Rama Rodriguez RN) Status: Ongoing (Rama Rodriguez RN) Outcome: Patient will Verbalize Understanding of Desired Content, and/or Performs Desired Skill Prior to Discharge (Rama Rodriguez RN) Status: Ongoing (Rama Rodriguez RN) Infection State: Risk For (Rama Rodriguez RN) Related To: Surgical Procedures; Prolonged Labor or Induction (Rama Rodriguez RN) Goal(s): The Patient will be Free of Infection, Vital Signs Stable and Lab Work within Normal Parameters (Rama Rodriguez RN) Interventions: Instruct and Reinforce Proper Handwashing, Hygiene, and Care Techniques to Patient and Family; Monitor Vital Signs; Monitor Patient for the Following Signs of Infection: Fever, Abdominal Tenderness, Unusual Discharge; Monitor Aminiotic Fluid, Urine and Lochia for Color and Odor; Observe Wounds, Incisions and Invasive Line Sites for Redness, Drainage and Edema; Assess IV Sites per Hospital Policy; Monitor Lab and Test Results and Notify Provider of Abnormal Findings; Assess Nutritional Status and Promote Good Nutrition (Rama Rodriguez RN) Outcome: Patient will Remain Free of Infection (Rama Rodriguez RN) Status: Ongoing (Rama Rodriguez RN) Outcome: Infection will be Recognized Early to Allow for Prompt Treatment (Rama Rodriguez RN) Status: Ongoing (Rama Rodriguez RN) Outcome: Patient will have Vital Signs Within Expected Range (Rama Rodriguez RN) Status: Ongoing (Rama Rodriguez RN) Fluid Volume State: Risk For (Rama Rodriguez RN) Related To: Surgical Procedures; Prolonged Labor or Induction; Hemorrhage (Rama Rodriguez RN) Goal(s): Patient will Achieve and Maintain a Balanced Fluid Volume Status; Hemodynamically Stable (Rama Rodriguez RN) Interventions: Monitor Vital Signs; Auscultate Breath Sounds; Monitor Patient for Skin Turgor, Mucous Membranes, Dry Skin, Weakness, Headaches and Confusion; Provide Oral Fluids as Ordered; Initiate and Maintain Intravenous Fluids as Ordered; Monitor Intake and Output as Indicated Per Patient Status; Accurately Measure Blood Loss; Monitor Lab and Test Results as Obtained and Notify Provider of Abnormal Findings; Monitor Patient's Weight (Rama Rodriguez RN) Outcome: Patient will have Clear Lung Sounds (Rama Rodriguez, RN) Status: Ongoing (Rama Rodriguez RN) Outcome: Patient will have Vital Signs within Expected Range (Rama Rodriguez, RN) Status: Ongoing (Rama Rodriguez, RN) Outcome: Urine Output will be within Expected Range (Rama Rodriguez, RN) Status: Ongoing (Rama Rodriguez RN) Outcome: Patient will have Minimal Generalized or Upper Extremity Edema (Rama Rodriguez, RN) Status: Ongoing (Rama Rodriguez, RN) Injury State: Risk For (Rama Rodriguez RN) Related To: Labor and Delivery Process; Anesthesia (Rama Rodriguez RN) Goal(s): Patient will Remain Free from Injury (Rama Rodriguez RN) Interventions: Monitoring as per Hospital Protocol; Assess Neurological Status; Perform Risk Assessment of Patients with Induction and ; Perform Fall Risk Assessment and Prevention per Hospital Protocol; Perform DVT Risk Assessment and Prophylaxis per Hospital Protocol; Ensure that Oxygen, Suction, and Resuscitation Medications and Equipment are Readily Available; Confirm Patient ID Prior to Procedure(s) and Medication Administration per Hospital Policy (Rama Rodriguez RN) Outcome: Successful Fall Risk Prevention (Rama Rodriguez RN) Status: Ongoing (Rama Rodriguez RN) Outcome: Patient will Deliver without Adverse Sequela (Rama Rodriguez RN) Status: Ongoing (Rama Rodriguez RN) Outcome: Patient's Neurological Status will Remain Stable (Rama Rodriguez RN) Status: Ongoing (Rama Rodriguez RN) Impaired Skin Integrity State: Risk For (Rama Rodriugez RN) Related To: Vaginal Delivery; Surgical Procedures (Rama Rodriguez RN) Goal(s): Patient will Maintain Optimal Skin Integrity, Free of Breakdown, Injury or Infection (Rama Rodriguez RN) Interventions: Complete Screening for Pressure Ulcer Risk and Initiate Protocol per Hospital Policy; Monitor Site of Skin Impairment for Color Changes, Redness, Swelling, Warmth, Pain or Other Signs of Infection; Encourage and Assist with Position Changes; Monitor Patient's Mobility Status; Provide Adequate Nutrition and Fluids; Teach Patient Appropriate Hygienic Care; Teach Patient/Family Skin Care Management (Rama Rodriguez RN) Outcome: Patient will not have Evidence of Injury Such as Skin Breakdown, Scrapes, Cuts, or Bruising (Rama Rodriguez RN) Status: Ongoing (Rama Rodriguez RN) Outcome: Patient will Report Any Altered Sensation or Pain at Site of Skin Impairment (Rama Rodriguez ) Status: Ongoing (Rama Rodriguez RN) Outcome: Patients Incisions and Wounds will be without Signs or Symptoms of Infection (Rama Rodriguez RN) Status: Ongoing (Rama Rodriguez RN) Outcome: Patient will Demonstrate Understanding of Plan to Heal Skin and Prevent Reinjury and Verbalize Risk Factors (Rama Rodriguez RN) Status: Ongoing (Rama Rodriguez, ) Parenting Impaired State: Not Applicable (Rama Rodriguez, ) Nutrition State: Not Applicable (Rama Rodriguez, ) Grieving State: Not Applicable (Rama Rodriguez, RN) Additional Care Plan State: Not Applicable Kaiden Rodriguez, RN)
--- NOTE | 2016-07-09 06:01 | L&D Current Admission ---
Current Admit Datetime Report Generated by CPN: 07/09/2016 06:00 ADMISSION INFORMATION Current Admit Date/Time: 07/08/2016 02:30 (07/08/2016 02:29:Etelvina Hopson RN) Reason for Admission: Onset of Labor (07/08/2016 02:29:Etelvina Hopson RN) Chief Complaint: Contractions (07/08/2016 02:29:Etelvina Hopson RN) EGA per Dates: 40.0 (07/08/2016 02:29:QS system process) Method of Arrival: Wheelchair (07/08/2016 02:29:Etelvina Hopson RN) Admitted From: Home (07/08/2016 02:29:Etelvina Hopson RN) Reason for Induction: Not Applicable (07/08/2016 02:29:Etelvina Hopson RN) Records Available: Yes (07/08/2016 02:29:Etelvina Hopson RN) General Admission Information: Reviewed (07/08/2016 02:29:Etelvina Hopson RN) BELONGINGS/ADVANCED DIRECTIVES Other Belongings: see belongings consent form (07/08/2016 02:29:Etelvina Hopson RN) Advance Direct for Healthcare: No, and Wants No Information (07/08/2016 02:29:Etelvina Hopson RN) Durable Power of Pipe Recovery Specialist: No (07/08/2016 02:29:Etelvina Hopson RN) Living Will: No (07/08/2016 02:29:Etelvina Hopson RN) Organ Donor: No (07/08/2016 02:29:Etelvina Hopson RN) Pt Rights Information Given: Yes (07/08/2016 02:29:Etelvina Hopson RN) Pt Understands Pt Rights: Yes (07/08/2016 02:29:Etelvina Hopson RN) LEARNING ASSESSMENT Knowledge Level: Understands L_D Process; Understands Care Activities; Understands Diagnosis (07/08/2016 02:29:Etelvina Hopson RN) Barriers to Learning: None (07/08/2016 02:29:Etelvina Hopson RN) Learning Readiness: Motivated (07/08/2016 02:29:Etelvina Hopson RN) Learns Best By: 1 to 1 Instruction (07/08/2016 02:29:Etelvina Hopson RN) Learning Needs: Labor and Delivery Process; Pain Management; Symptoms to Report; Treatment Plan; Medication; Diagnosis; Nutrition; Equipment; Care; Community Resources (07/08/2016 02:29:Etelvina Hopson RN) DOMESTIC VIOLANCE SCREENING Dom Viol Threatened/Hurt: No (07/08/2016 02:29:Etelvina Hopson RN) Hx of Abuse/Neglect past 2yrs: No (07/08/2016 02:29:Etelvina Hopson RN) Feel Unsafe Going Home: No (07/08/2016 02:29:Etelvina Hopson RN) Addt'l Observ Indicating Abuse: No (07/08/2016 02:29:Etelvina Hopson RN) Reason Unable to Complete Screen: N/A, Screen Completed (07/08/2016 02:29:Etelvina Hopson RN) Considered Personal Harm/Suicide: No (07/08/2016 02:29:Etelvina Hopson RN) NUTRITIONAL/FUNCTIONAL SCREENING Problem with Appetite >5 Days: No (07/08/2016 02:29:Etelvina Hopson RN) Chew/Swallow Difficulties: No (07/08/2016 02:29:Etelvina Hopson RN) Inappropriate Wt Gain/Loss: No (07/08/2016 02:29:Etelvina Hopson RN) Presence Skin Breakdown/Ulcer: No (07/08/2016 02:29:Etelvina Hopson RN) Special Diet: No (07/08/2016 02:29:Etelvina Hopson RN) Pt Requests Trailer Body Assembler Visit: No (07/08/2016 02:29:Etelvina Hopson RN) Hx of Any of the Following?: N/A (07/08/2016 02:29:Etelvina Hopson RN) New Diagnosis of: N/A (07/08/2016 02:29:Etelvina Hopson RN) Requires Assist w/Ambulation: No (07/08/2016 02:29:Etelvina Hopson RN) Uses Assist Device to Ambulate: No (07/08/2016 02:29:Etelvina Hopson RN) Pt Requires Help w/ADL's: No (07/08/2016 02:29:Etelvina Hopson RN)
--- NOTE | 2016-07-09 06:01 | L&D General Admission ---
General Admit Datetime Report Generated by CPN: 07/09/2016 06:00 INFORMATION Patient Age: 26 (06/13/2016 15:20:QS system process) EDC: 07/08/2016 00:00 (07/08/2016 01:48:Karis Gonzalez RN) : 4 (07/08/2016 01:48:Etelvina Hopson RN) Para: 3 (07/08/2016 01:48:Etelvina Hopson RN) Term: 3 (07/08/2016 01:48:Etelvina Hopson RN) : 0 (07/08/2016 01:48:Etelvina Hopson RN) Spontaneous Abortions: 0 (07/08/2016 01:48:Etelvina Hopson RN) Induced Abortions: 0 (07/08/2016 01:48:Etelvina Hopson RN) Livin (07/08/2016 01:48:Etelvina Hopson RN) Cesareans: 0 (07/08/2016 01:48:Etelvina Hopson RN) VBACs: 0 (07/08/2016 01:48:Etelvina Hopson RN) Ectopic: 0 (07/08/2016 01:48:Etelvina Hopson RN) Multiple Births: 0 (07/08/2016 01:48:Etelvina Hopson RN) Baby, Number in Womb: 1 (07/08/2016 01:48:Etelvina Hopson RN) CARE Primary Lineman Service Or Work Dispatcher: [facility] (07/08/2016 01:48:Etelvina Hopson RN) Month of 1st Visit: January (07/08/2016 01:48:Karis Gonzalez RN) Prepregnancy Weight (lb): 150 (07/08/2016 01:48:Karis Gonzalez RN) Prepregnancy Weight (kg): 68.2 (07/08/2016 01:48:QS system process) Height (in): 64 (07/08/2016 11:39:QS system process) ALLERGIES Medication Allergy: No (07/08/2016 01:48:Etelvina Hopson RN) Medication Allergies: none (07/08/2016 01:48:Etelvina Hopson RN) Latex Allergy: No Latex Allergies (07/08/2016 01:48:Etelvina Hopson RN) Food Allergies: none (07/08/2016 01:48:Etelvina Hopson RN) Environmental Allergies: none (07/08/2016 01:48:Etelvina Hopson RN) COMMUNICATION Primary Language: Bahamian (07/08/2016 01:48:Etelvina Hopson RN) Medical Tx Preferred Language: Bahamian (07/08/2016 01:48:Etelvina Hopson RN) Communication Barrier(s): Language barrier (07/08/2016 01:48:Etelvina Hopson RN) DEMOGRAPHICS Address: [address] [place] [address] [address] (06/13/2016 15:20:QS system process) Zipcode: [address] (06/13/2016 15:20:QS system process) Home (06/13/2016 15:20:QS system process) SSN: [id number] (06/13/2016 15:20:QS system process) Next of Kin Name: NOHELIA RYAN (06/13/2016 15:20:QS system process) Next of Kin (06/13/2016 15:20:QS system process) Next of Kin Relationship: SPO (06/13/2016 15:20:QS system process) Date of : 1990 (06/13/2016 15:20:QS system process) Marital Status: (06/13/2016 15:20:QS system process) Sex: Female (06/13/2016 15:20:QS system process) Race: (06/13/2016 15:20:QS system process) Ethnicity: Non- or (06/13/2016 15:20:QS system process) Confucianism: Other (06/13/2016 15:20:QS system process) DRUG AND ALCOHOL USE Alcohol: No (07/08/2016 01:48:Etelvina Hopson RN) Cigarettes: Never Smoker. [id number] (07/08/2016 01:48:Etelvina Hopson RN) Marijuana: No (07/08/2016 01:48:Etelvina Hopson RN) Cocaine: No (07/08/2016 01:48:Etelvina Hopson RN) Other Illicit Drugs: No (07/08/2016 01:48:Etelvina Hopson RN) VACCINE HISTORY Influenza Vaccine: Yes (07/08/2016 01:48:Karis Gonzalez RN) Influenza Date: 03/02/2016 (07/08/2016 01:48:Karis Gonzalez RN) Pneumococcal Vaccine: No (07/08/2016 01:48:Etelvina Hopson RN) Tetanus Vaccine: Uncertain (07/08/2016 01:48:Etelvina Hopson RN) Tdap Vaccine: Uncertain (07/08/2016 01:48:Etelvina Hopson RN) Hepatitis B Vaccine: Uncertain (07/08/2016 01:48:Etelvina Hopson RN) Feeding Preference: Breast (07/08/2016 01:48:Etelvina Hopson RN) Benefit of Breast Feed Discussed: Yes (07/08/2016 01:48:Etelvina Hopson RN) Circumcision: N/A (07/08/2016 01:48:Etelvina Hopson RN) Classes Attended: No (07/08/2016 01:48:Etelvina Hopson RN) Tubal Ligation: No (07/08/2016 01:48:Etelvina Hopson RN) Tubal Authorization Signed: N/A (07/08/2016 01:48:Etelvina Hopson RN) Consent: N/A (07/08/2016 01:48:Etelvina Hopson RN) Consent Signed: N/A (07/08/2016 01:48:Etelvina Hopson RN) Pain Management Plans: Epidural (07/08/2016 01:48:Etelvina Hopson RN) Plans for Labor and Delivery: None (07/08/2016 01:48:Etelvina Hopson RN) Support Person: Cecille (07/08/2016 01:48:Etelvina Hopson RN) Support Person Relationship: (07/08/2016 01:48:Etelvina Hopson RN) Cultural/Spritual Practice: No (07/08/2016 01:48:Etelvina Hopson RN) Spir/Cult Dietary Needs: No (07/08/2016 01:48:Etelvina Hopson RN) LIVING SITUATION/DISCHARGE PLAN Living Arrangements: Apartment (07/08/2016 01:48:Etelvina Hopson RN) Adequate Access to:: Electric; Heat; Refrigeration; Plumbing/Running water; Phone; Transportation (07/08/2016 01:48:Etelvina Hopson RN) WIC Program: Suzie (07/08/2016 01:48:Etelvina Hopson RN) Discharge Engagement Engineer Person: cecille (07/08/2016 01:48:Etelvina Hopson RN) Person to Help after Discharge: cecille (07/08/2016 01:48:Etelvina Hopson RN) Currently Using Commun Resources: Suzie (07/08/2016 01:48:Etelvina Hopson RN) Outside Agency/Insurance Healthcare Representative: Suzie (07/08/2016 01:48:Etelvina Hopson RN) Car Seat for Discharge: Yes (07/08/2016 01:48:Etelvina Hopson RN) Adoption Requested: No (07/08/2016 01:48:Etelvina Hopson RN) Pt Contact w/infant Post : N/A (07/08/2016 01:48:Etelvina Hopson RN) LABS Blood Type: A Positive (07/08/2016 01:48:Karis Gonzalez RN) Antibody Screen: Negative (07/08/2016 01:48:Karis Gonzalez RN) Rho(G) this : Not Applicable (07/08/2016 01:48:Karis Gonzalez RN) Hemoglobin: 10.7 L (07/08/2016 02:31:QS system process) Hematocrit: 33.3 L (07/08/2016 02:31:QS system process) MCV: 78 L (07/08/2016 02:31:QS system process) Group Beta Strep: Negative (07/08/2016 01:48:Karis Gonzalez RN) Gonorrhea: Negative (07/08/2016 01:48:Karis Gonzalez RN) Chlamydia: Negative (07/08/2016 01:48:Karis Gonzalez RN) RPR/VDRL: Nonreactive (07/08/2016 01:48:Karis Gonzalez RN) HIV Results: Negative (07/08/2016 01:48:Karis Gonzalez RN) Hepatitis B: Negative (07/08/2016 01:48:Karis Gonzalze RN) Rubella: Immune (07/08/2016 01:48:Karis Gonzalez RN) OB/PREVIOUS HISTORY Previous Procedures: Ultrasound; NST (07/08/2016 01:48:Etelvina Hopson RN) Current Procedures: Ultrasound; NST (07/08/2016 01:48:Etelvina Hopson RN) History of Previous : No (07/08/2016 01:48:Karis Gonzalez RN) History of Gestational Diabetes: No (07/08/2016 01:48:Karis Gonzalez RN) History of PIH: No (07/08/2016 01:48:Karis Gonzalez RN) History of Incompetent Cervix: No (07/08/2016 01:48:Karis Gonzalez RN) History of Placenta Previa/Abrup: No (07/08/2016 01:48:Karis Gonzalez RN) History of Macrosomia: No (07/08/2016 01:48:Karis Gonzalez RN) History of IUGR: No (07/08/2016 01:48:Karis Gonzalez RN) History of Hemorrhage: No (07/08/2016 01:48:Karis Gonzalez RN) History of Loss/Stillborn: No (07/08/2016 01:48:Karis Gonzalez RN) History of : No (07/08/2016 01:48:Karis Gonzalez RN) History of D (Rh) Sensitization: No (07/08/2016 01:48:Karis Gonzalez RN) History Recurrent Loss/Stillborn: No (07/08/2016 01:48:Karis Gonzalez RN) History Depression/PP Depression: No (07/08/2016 01:48:Etelvina Hopson RN) History of Uterine Anomaly/LIDIA: No (07/08/2016 01:48:Karis Gonzalez RN) History of Infertility: No (07/08/2016 01:48:Karis Gonzalez RN) History of ART Treatment: No (07/08/2016 01:48:Etelvina Hopson RN) History of LIDIA: No (07/08/2016 01:48:Karis Gonzalez RN) Comments Obstetrical History: G1-12/03/2010 @ 40wks female 6lbs 5oz G2-12/24/2012 @ 39wks female 7lbs 0oz G3-12/02/2014 @ 41wks male 7lbs 8oz G4-Current (07/08/2016 01:48:Karis Gonzalez RN) MEDICAL HISTORY Med Hx Diabetes: No (07/08/2016 01:48:Etelvina Hopson RN) Med Hx Hypertension: No (07/08/2016 01:48:Etlevina Hopson RN) Med Hx Heart Disease: No (07/08/2016 01:48:Etelvina Hopson RN) Med Hx Autoimmune Disorder: No (07/08/2016 01:48:Etelvina Hopson RN) Med Hx Kidney Disease/UTI: No (07/08/2016 01:48:Etelvina Hopson RN) Med Hx Neurologic/Epilepsy: No (07/08/2016 01:48:Etelvina Hopson RN) Med Hx Psychiatric Disorders: No (07/08/2016 01:48:Etelvina Hopson RN) Med Hx Hepatitis/Liver Disease: No (07/08/2016 01:48:Etelvina Hopson RN) Med Hx Varicosities/Phlebitis: No (07/08/2016 01:48:Etelvina Hopson RN) Med Hx Thyroid Dysfunction: No (07/08/2016 01:48:Etelvina Hopson RN) Med Hx Trauma/Violence: No (07/08/2016 01:48:Etelvina Hopson RN) Med Hx Blood Transfusion: No (07/08/2016 01:48:Etelvina Hopsno RN) Med Hx Pulmonary (Asthma,TB): No (07/08/2016 01:48:Etelvina Hopson RN) Med Hx Breast: No (07/08/2016 01:48:Etelvina Hopson RN) Med Hx WE[employer] DEVELOPER Surgery: No (07/08/2016 01:48:Etelvina Hopson RN) Med Hx Hospitalization/Surgery: Yes (07/08/2016 01:48:Etelvina Hopson RN) Med Hx Anesthetic Complications: No (07/08/2016 01:48:Etelvina Hopson RN) Med Hx Abnormal Pap Smear: No (07/08/2016 01:48:Etelvina Hopson RN) Other Medical Diseases: No (07/08/2016 01:48:Etelvina Hopson RN) Med Hx Significant Family Hx: No (07/08/2016 01:48:Etelvina Hopson RN) Details of Med/Surg Hx: childbirth (07/08/2016 01:48:Etelvina Hopson RN) INFECTIOUS HISTORY Inf Hx Gonorrhea: No (07/08/2016 01:48:Etelvina Hopson RN) Inf Hx Chlamydia: No (07/08/2016 01:48:Etelvina Hopson RN) Inf Hx Syphilis: No (07/08/2016 01:48:Etelvina Hopson RN) Inf Hx HIV/AIDS: No (07/08/2016 01:48:Etelvina Hopson RN) Inf Hx Human Papilloma Virus: No (07/08/2016 01:48:Etelvina Hopson RN) Inf Hx Pt/Partner Genital Herpes: No (07/08/2016 01:48:Etelvina Hopson RN) Inf Hx Tuberculosis/Exposure: No (07/08/2016 01:48:Etelvina Hopson RN) Inf Hx Hepatitis B,C: No (07/08/2016 01:48:Etelvina Hopson RN) Inf Hx Rash or Viral Illness: No (07/08/2016 01:48:Etelvina Hopson RN) GENETIC HISTORY Gen Hx Age >=35 at [facility] B[facility]: No (07/08/2016 01:48:Etelvina Hopson RN) Gen Hx Thalassemia: No (07/08/2016 01:48:Etelvina Hopson RN) Gen Hx Congenital Heart Defect: No (07/08/2016 01:48:Etelvina Hopson RN) Gen Hx Neural Tube Defect: No (07/08/2016 01:48:Etelvina Hopson RN) Gen Hx Down's Syndrome: No (07/08/2016 01:48:Etelvina Hopson RN) Gen Hx Raul-Sachs: No (07/08/2016 01:48:Etelvina Hopson RN) Gen Hx Amy: No (07/08/2016 01:48:Etelvina Hopson RN) Gen Hx Familial Dysautonomia: No (07/08/2016 01:48:Etelvina Hopson RN) Gen Hx Sickle Cell Disease/Trait: No (07/08/2016 01:48:Etelvina Hopson RN) Gen Hx Hemophilia/Blood Disorder: No (07/08/2016 01:48:Etelvina Hopson RN) Gen Hx Muscular Dystrophy: No (07/08/2016 01:48:Etelvina Hopson RN) Gen Hx Cystic Fibrosis: No (07/08/2016 01:48:Etelvina Hopson RN) Gen Hx Huntingtons Chorea: No (07/08/2016 01:48:Etelvina Hopson RN) Gen Hx Mental Retardation/Autism: No (07/08/2016 01:48:Etelvina Hopson RN) Gen Hx Tested for Fragile X: No (07/08/2016 01:48:Etelvina Hopson RN) Gen Hx Other Inher/Chromosomal: No (07/08/2016 01:48:Etelvina Hopson RN) Gen Hx Maternal Metabolic DO: No (07/08/2016 01:48:Etelvina Hopson RN) Gen Hx Pt Father or FOB Defect: No (07/08/2016 01:48:Etelvina Hopson RN) Gen Hx Other Genetic History: No (07/08/2016 01:48:Etelvina Hopson RN) Gen Hx Drugs/Meds since LMP: No (07/08/2016 01:48:Etelvina Hopson RN)
[2016-07-09] MEDS: IBUPROFEN 800 MG TABLET PO SCH ×3 (06:26→21:25)
[2016-07-09 08:08] LABS: HEMATOCRIT 29.4 % (36.0-47.0); HEMOGLOBIN 9.4 g/dL (12.0-15.5); HGB HCT DIFFERENCE -1.2; MEAN CORPUSCULAR HGB CONC 31.9 g/dL (32.0-36.0); MEAN CORPUSCULAR VOLUME 78 fl (80-97); RED BLOOD COUNT 3.75 10^6/uL (3.72-5.28); RED CELL DISTRIBUTION WIDTH 13.7 % (11.5-14.0); WHITE BLOOD COUNT 8.8 10^3/uL (4.0-10.5)
[2016-07-09] MEDS: DOCUSATE SODIUM 100 MG CAPSULE PO SCH ×2 (09:27→17:19)
[2016-07-09] MEDS: PRENATAL VITAMIN W-O CA NO5/FE FUMARATE/FA CAPSULE PO SCH (09:27)
[2016-07-09] MEDS: SENNOSIDES/DOCUSATE 8.6-50 MG 1 EACH TABLET PO SCH (09:27)
[2016-07-09] MEDS: FERROUS SULFATE 325 MG TABLET PO SCH ×2 (09:28→17:19)
--- NOTE | 2016-07-09 10:26 | PDOC PROGRESS REPORT ---
Subjective-OB Subjective: Post Delivery Day: 26 year old. Denies any needs at this time per . Patient sleeping. Physical Exam (OB) Vital Signs: Temp Pulse Resp BP Pulse Ox 98.0 F 74 14 111/69 100 07/09/16 08:11 07/09/16 08:11 07/09/16 08:11 07/09/16 08:11 07/09/16 08:11 Intake & Output 07/08/16 07/09/16 07/10/16 06:59 06:59 06:59 Weight 77.05 kg - PIH/Pre-Eclampsia Clonus: Negative - Lochia Lochia Amount: Scant < 10 ml Lochia Color: Rubra/Red - Abdomen Description: Soft, Round Hernia Present: No Bowel Sounds: Normoactive Flatus Presence: Present Stool: No Fundal Description: Firm, Midline Fundal Height: u/u - u/2 Objective-Diagnostic Laboratory: 07/09/16 07:31 07/09/16 07:31 WBC 8.8 RBC 3.75 Hgb 9.4 L Hct 29.4 L MCV 78 L MCH 25.0 L MCHC 31.9 L RDW 13.7 Plt Count 240
[2016-07-10] MEDS: IBUPROFEN 800 MG TABLET PO SCH (05:30)
[2016-07-10] MEDS: SENNOSIDES/DOCUSATE 8.6-50 MG 1 EACH TABLET PO SCH (09:25)
[2016-07-10] MEDS: PRENATAL VITAMIN W-O CA NO5/FE FUMARATE/FA CAPSULE PO SCH (09:26)
[2016-07-10] MEDS: FERROUS SULFATE 325 MG TABLET PO SCH (09:26)
[2016-07-10] MEDS: DOCUSATE SODIUM 100 MG CAPSULE PO SCH (09:26)
--- NOTE | 2016-07-10 10:47 | PDOC PROGRESS REPORT ---
Subjective-OB Subjective: Post Delivery Day: 26 year old. Denies any needs at this time. Ready to go home. Physical Exam (OB) Vital Signs: Temp Pulse Resp BP Pulse Ox 98.0 F 74 14 111/69 100 07/09/16 08:11 07/09/16 08:11 07/09/16 08:11 07/09/16 08:11 07/09/16 08:11 - PIH/Pre-Eclampsia Clonus: Negative - Lochia Lochia Amount: Scant < 10 ml Lochia Color: Rubra/Red - Abdomen Description: Soft Hernia Present: No Bowel Sounds: Normoactive Flatus Presence: Present Stool: No Fundal Description: Firm, Midline Fundal Height: u/3 - u/4 Objective-Diagnostic Laboratory: 07/09/16 07:31
--- NOTE | 2016-07-10 10:54 | PDOC DISCHARGE SUMMARY ---
Final Diagnosis Discharge Date: 07/10/16 - Final Diagnosis (1) Delivery normal Is this a current diagnosis for this admission?: Yes (2) Is this a current diagnosis for this admission?: Yes Discharge Data - Discharge Medication Home Medications: Ferrous Sulfate [Feosol 325 mg Tablet] 325 mg PO BID #60 tablet 07/10/16 Gestational Age: 40.0 wks Reason(s) for Admission: Onset of Labor Procedures: Ultrasound Intrapartum Procedure(s): Spontaneous Vaginal Delivery - Milo Data Baby 1 Female at 1 minute: 9 at 5 minutes: 9 Weight: 3.402 kg Home with Mother: Yes Complications: No - Diagnosis Test Laboratory: Temp Pulse Resp BP Pulse Ox 98.0 F 74 14 111/69 100 07/09/16 08:11 07/09/16 08:11 07/09/16 08:11 07/09/16 08:11 07/09/16 08:11 07/08/16 07/09/16 02:31 07:31 RBC 4.29 3.75 Hgb 10.7 L 9.4 L Hct 33.3 L 29.4 L - Discharge information/Instructions Discharge Activity: Activity As Tolerated, Balance Activity w/Rest, Pelvic Rest , Slowly Increase Activity, No tub bath Discharge Diet: Regular Disposition: HOME, SELF-CARE Follow up with: [facility] in: 4, Weeks
[2016-07-10 11:20] VITALS: BP 123/61
== END 2016-07-10 12:12 | disposition home or self-care (01) | DRG 775 ==
LOC: LC 01:43 → LR 02:13 → 2S 05:20
PROVIDERS: ADMIT Specialist; ATTEND Specialist
PROC: 10E0XZZ Delivery of Products of Conception, External Approach (ICD-10-PCS; principal; 2016-07-08)
PROC: 4A1HXCZ Monitoring of Products of Conception, Cardiac Rate, External Approach (ICD-10-PCS; 2016-07-08)
PROC: 3E0234Z Introduction of Serum, Toxoid and Vaccine into Muscle, Percutaneous Approach (ICD-10-PCS; 2016-07-10)
DX: O62.3 Precipitate labor (principal); O77.0 Labor and delivery complicated by meconium in amniotic fluid; O69.81X0 Labor and delivery complicated by cord around neck, without compression, not applicable or unspecified; Z3A.40 40 weeks gestation of pregnancy; Z37.0 Single live birth; Z23 Encounter for immunization
CPT/HCPCS: 36415; 85025; 85027; 86592; 86850; 86900; 86901; 90715; J2590; J3010; J3490